=== PATIENT | female | born 1975 | race Two or more races ===

== ENCOUNTER 2021-11-21 19:23 | Emergency (ER) | payer OTHER ==
--- OUTSIDE RECORDS SUMMARY | 2021-11-21 19:44 | EXTERNAL MEDICAL SUMMARY RPT | Continuity of Care Document ---
:1975 Author Organization [facility] Address [address] [place] [address] Phone Care Team Providers Name Role Phone Eran GLASS Unavailable Unavailable Allergies No information. Encounters No information. Medications No information. Problems date description facility 20211116 Laceration without foreign body of left middle finger without All damage to nail, initial encounter 20211116 Laceration of finger All Results No information. Vital Signs date measurement value source 20211116 weight_standard 202 lb 20211116 weight_metric 91.63 kg 20211116 temperature_standard 97.9 F 20211116 temperature_metric 36.61 C 20211116 respiration_rate 16 /min 20211116 height_standard 60.75 in 20211116 height_metric 154.31 cm 20211116 heart_rate 80 /min 20211116 BP_systolic 148 mm[Hg] 20211116 BP_diastolic 86 mm[Hg] 20211116 BMI 38.62 kg/m2
--- NOTE | 2021-11-21 19:57 | ED Physician Documentation ---
History of Present Illness - Stated complaint Stated Complaint: CONSTIPATION - Chief complaint Chief Complaint: Abd Pain - History obtained from History obtained from: Patient - History of Present Illness Timing: Today Pain level max: 0 Pain level now: 0 - Additonal information Additional information: Patient is a 46-year-old female who presents to the emergency department stating she has a history of IBS. She states she has intermittent constipation. She states that she felt constipated today so she took a suppository. She states that she had one episode of "dry heaving" and felt like everything "released". She states that she has no pain and she felt much better after this. No abdominal distention. No diarrhea. Currently asymptomatic. Review of Systems Constitutional: denies: Fever, Chills Respiratory: denies: Dyspnea, Cough GI: denies: Abdominal Pain, Vomiting, Diarrhea, Hematemesis, Bloody / black stool : denies: Dysuria Skin: denies: Rash Musculoskeletal: denies: Neck pain, Back pain Neurologic: denies: Headache PD PAST MEDICAL HISTORY - Past Medical History Past Medical History: Yes GI: Other Psych: Depression, Anxiety Other Past Medical History: IBS - Past Surgical History Past Surgical History: No - Present Medications Home Medications: Ambulatory Orders Medication Instructions Recorded Confirmed No Known Home Medications 11/21/21 11/21/21 - Allergies Allergies/Adverse Reactions: Allergies Allergy/AdvReac Type Severity Reaction Status Date / Time No Known Drug Allergies Allergy Verified 11/21/21 19:34 - Social History Does the pt smoke?: Yes Smoking Status: Current every day smoker Does the pt drink ETOH?: Yes Does the pt have substance abuse?: No - Immunizations Immunizations are current?: Yes PD ED PE NORMAL - Vitals Vital signs reviewed: Yes - General General: Alert and oriented X 3, No acute distress - HEENT HEENT: Moist mucous membranes - Neck Neck: Supple, no meningeal sign - Cardiac Cardiac: RRR - Respiratory Respiratory: No respiratory distress, Clear bilaterally - Abdomen Abdomen: Normal bowel sounds, Soft, Non tender, Non distended - Back Back: No CVA TTP - Derm Derm: Warm and dry, No rash - Extremities Extremities: No edema - Neuro Neuro: Alert and oriented X 3 - Psych Psych: Normal mood, Normal affect Results - Vitals Vitals: Vital Signs - 24 hr 11/21/21 11/21/21 19:28 20:19 Temperature 36.4 C L 36.4 C L Heart Rate 100 88 Respiratory 18 18 Rate Blood Pressure 150/76 H 140/75 H O2 Saturation 99 100 Oxygen O2 Source Room air PD MEDICAL DECISION MAKING - ED course Complexity details: considered differential, d/w patient ED course: Patient is asymptomatic in the emergency department. Abdomen is soft, nontender nondistended. No vomiting. No evidence of bowel obstruction. Recommend MiraLAX and/or magnesium citrate for any further constipation. Recommend she follow-up with her doctor for further care. No indication for radiographic imaging or laboratory testing at this time emergently. Patient counseled regarding signs and symptoms for which I believe and urgent re-evaluation would be necessary. Patient with good understanding of and agreement to plan and is comfortable going home at this time This document was made in part using voice recognition software. While efforts are made to proofread this document, sound alike and grammatical errors may occur. Departure - Departure Disposition: 01 Home, Self Care Clinical Impression: Elevated blood pressure reading Constipation Qualifiers: Constipation type: unspecified constipation type Qualified Code(s): K59.00 - Constipation, unspecified Condition: Good Instructions: ED Constipation Follow-Up: your,doctor as needed [Other] Comments: Follow-up with your doctor for further care. You can try magnesium citrate or MiraLAX for constipation. Make sure you are drinking plenty of water with these . Return for abdominal pain and/or vomiting. Your blood pressure was mildly elevated tonight in the emergency department, but this is not uncommon when you come to the emergency department. You can have this rechecked with your doctor. Discharge Date/Time: 11/21/21 20:19
[2021-11-21 20:20] VITALS: BP 140/75
== END 2021-11-21 20:19 | disposition home or self-care (01) ==
LOC: ED 19:23
DX: K59.00 Constipation, unspecified (principal); R03.0 Elevated blood-pressure reading, without diagnosis of hypertension; F17.200 Nicotine dependence, unspecified, uncomplicated
CPT/HCPCS: 99281; 99282

== ENCOUNTER 2021-12-05 08:00 | Outpatient (CLI) | payer OTHER ==
[2021-12-05 23:54] LABS: BACTERIAL VAGINOSIS DNA NEGATIVE (NEGATIVE); CANDIDA KRUSEI DNA NEGATIVE (NEGATIVE)
[2021-12-05 23:55] LABS: CANDIDA GLABRATA DNA NEGATIVE (NEGATIVE); CANDIDA GROUP DNA NEGATIVE (NEGATIVE); TRICHOMONAS VAGINALIS DNA NEGATIVE (NEGATIVE)
== END 2021-12-05 23:59 ==
LOC: LAB.N 08:00
PROVIDERS: ATTEND Family Medicine
DX: N89.8 Other specified noninflammatory disorders of vagina (principal)
CPT/HCPCS: 87661; 87801